=== PATIENT | female | born 1970 | race Caucasian/White ===

== ENCOUNTER 2021-09-16 14:59 | Outpatient (REF) | payer MEDICAID, SELFPAY ==
--- NOTE | ~2021-09-16 | MM_ITS ---
EXAMINATION: MM SCREENING DIGITAL BREAST TOMOSYNTHESIS, BILATERAL CLINICAL INFORMATION: Screening. Asymptomatic. The lifetime risk of breast cancer based on the Tyrer-Cuzick Model is 7%. COMPARISON: Outside mammography: 10/13/2013, 05/27/2012 ([facility]). TECHNIQUE: Digital breast tomosynthesis is performed in both the craniocaudal and mediolateral oblique views along with computer-aided detection (CAD). Synthesized 2D images are generated from the tomosynthesis. FINDINGS: There are scattered areas of fibroglandular density (ACR BI-RADS breast composition Category b). There are no significant masses, abnormal calcifications, or other abnormalities. Parenchymal pattern is similar to prior outside studies. No developing density or architectural abnormality. The axilla and skin contours are unremarkable. MM/MM tomosynthesis screening BI IMPRESSION: No mammographic evidence of malignancy. ASSESSMENT: BI-RADS 1: Negative RECOMMENDATION: Routine annual mammography screening. This patient's information was entered into a reminder system with a target due date for their next mammogram.
== END 2021-09-16 15:00 | disposition home or self-care (01) ==
LOC: HO.MAMMO 14:59
PROVIDERS: Visit Provider Internal Medicine
DX: Z12.31 Encounter for screening mammogram for malignant neoplasm of breast (principal)
CPT/HCPCS: 77063; 77067

== ENCOUNTER 2021-10-29 14:09 | Outpatient (REF) | payer MEDICAID, SELFPAY ==
--- NOTE | ~2021-10-29 | US_ITS ---
EXAMINATION: US SOFT TISSUE OF THE NECK CLINICAL INFORMATION: Lump in neck. COMPARISON: None TECHNIQUE: Linear transducer grayscale and color Doppler examination of the soft tissues of the right supraclavicular area (just right of midline). FINDINGS: No abnormality in the soft tissues is seen bilaterally. No lymph node, mass, cyst or fluid collection is seen. US/US soft tiss head and/or neck IMPRESSION: No soft tissue abnormality seen by ultrasound.
== END 2021-10-29 14:10 | disposition home or self-care (01) ==
LOC: HO.US 14:09
PROVIDERS: Visit Provider Internal Medicine
DX: R22.1 Localized swelling, mass and lump, neck (principal)
CPT/HCPCS: 76536

== ENCOUNTER → 2021-11-19 08:20 | Outpatient (BNVA) | payer MEDICAID, SELFPAY | PROVIDERS: PCP Internal Medicine; Referring Provider Internal Medicine; Visit Provider Nurse Practitioner | DX: Z01.818 Encounter for other preprocedural examination (principal); Z83.71 Family history of colonic polyps | CPT/HCPCS: 99202 ==

== ENCOUNTER 2021-12-10 06:48 | Outpatient (REF) | payer MEDICAID, SELFPAY ==
[2021-12-10 07:07] LABS: MANUAL DIFF FLAG NO
[2021-12-10 07:37] LABS: Basophils Percent Auto 0.3 % (0-2); Eosinophils Absolute Auto 0.1 X10*3/uL (0.0-0.4); Eosinophils Percent Auto 1.8 % (0-4); Hematocrit 45.3 % (37.0-47.0); Hemoglobin 15.4 g/dl (12.0-16.0); Imm Gran Abs Auto 0.01 X10*3/uL (0.00-0.03); Imm Gran Pct Auto 0.1 % (0.0-0.4); Lymphocytes Absolute Auto 1.9 X10*3/uL (1.2-4.9); Lymphocytes Percent Auto 26.2 % (20-40); Mean Corpuscular Hemoglobin 30.6 pg (27.0-33.0); Mean Corpuscular Volume 90.1 fL (80.0-98.0); Mean Platelet Volume 8.7 fL (9.4-12.3); Monocytes Absolute Auto 0.6 X10*3/uL (0.1-1.2); Monocytes Percent Auto 8.6 % (2-11); Neutrophils Absolute Auto 4.5 x10*3/uL (2.0-8.3); Platelet Count 298 X10*3/uL (160-400); Red Blood Count 5.03 X10*6/uL (4.20-5.50); Red Cell Distribution Width 12.8 % (11.0-16.0); White Blood Count 7.1 X10*3/uL (4.8-10.8)
[2021-12-10 08:32] LABS: Alanine Aminotransferase 30 U/L (0-31); Albumin Level 4.5 g/dL (3.5-5.0); Alkaline Phosphatase 80 U/L (39-117); Anion Gap 18 (12-20); Aspartate Amino Transferase 26 U/L (5-31); Bilirubin Total 0.3 mg/dL (0.0-1.0); Blood Urea Nitrogen 14 mg/dL (9-16); Calcium 10.1 mg/dL (8.4-10.2); Carbon Dioxide 27 mmol/L (22-29); Chloride 99 mmol/L (96-108); Estimated Glomerular Filt Rate > 60; Glucose Random 119 mg/dL (60-115); Potassium 4.7 mmol/L (3.3-5.1); Sodium 139 mmol/L (135-145); Total Protein 7.9 g/dL (6.5-8.0)
== END 2021-12-10 06:49 | disposition home or self-care (01) ==
LOC: HO.LAB 06:48
PROVIDERS: Visit Provider Nurse Practitioner
DX: Z01.818 Encounter for other preprocedural examination (principal)
CPT/HCPCS: 36415; 80053; 85025

== ENCOUNTER 2024-07-04 10:09 | Outpatient (REF) | payer MEDICAID, SELFPAY ==
[2024-07-04 11:42] LABS: Alanine Aminotransferase 43 U/L (0-31); Albumin Level 4.6 g/dL (3.5-5.0); Anion Gap 13 (12-20); Aspartate Amino Transferase 33 U/L (5-31); Bilirubin Total 0.3 mg/dL (0.0-1.0); Blood Urea Nitrogen 16 mg/dL (9-16); Calcium 10.1 mg/dL (8.4-10.2); Carbon Dioxide 31 mmol/L (22-29); Chloride 102 mmol/L (96-108); Cholesterol 189 mg/dL (<200); Estimated Glomerular Filt Rate > 60; Glucose Random 95 mg/dL (60-115); HDL Cholesterol 40 mg/dL (>40); LDL Cholesterol Calculated 124 mg/dL (<100); Magnesium 2.2 mg/dL (1.6-2.6); Potassium 3.9 mmol/L (3.3-5.1); Sodium 142 mmol/L (135-145); Total Protein 8.4 g/dL (6.5-8.0); Triglycerides 128 mg/dL (<150)
[2024-07-04 11:43] LABS: HIV AB/AG Nonreactive (Nonreactive); HIV Num 1 0.06 S/CO (0.00-0.99); ~HepC Num1 0.07 S/CO (0.00-0.79); ~Hepatitis C Antibody Nonreactive (Nonreactive)
[2024-07-04 11:46] LABS: Alkaline Phosphatase 79 U/L (39-117); Estimated Average Glucose 137 mg/dL; Hemoglobin A1C 188.0241 umol/L; Hemoglobin A1c % 6.4 % (<6.0); Total Hemoglobin (HGBA1C) 4068.1325 umol/L
--- OUTSIDE RECORDS SUMMARY | 2024-07-04 11:47 | XMS_ITS | Encounter Summary ---
Author Organization [facility] [employer] [facility] Address [address] [place] [address] 7 [place] [address] Care Team Providers Care Credit Risk Analytics Manager Name Role Phone Mari Cobos NP Primary Care Provider [phone] Reason for Visit * Reason Comments Med Refill Encounter Details Date Type Department Care Team (Late Contact Info) Description 01/04/2024 Refill [facility] [address] [place] [address] Mari Cobos NP [address] [place] [address] Primary hypertension Social History Tobacco Use Types Packs/Day Years Used Date Smoking Tobacco: Never Assessed Comments Unknown Sex and Gender Information Value Date Recorded Sex Assigned at Female 01/06/2022 10:29 AM EDT Legal Sex Female 10:29 AM EDT Gender Identity Female 01/06/2022 10:29 AM EDT Sexual Orientation Straight 01/06/2022 10 :29 AM EDT documented as of this encounter Plan of Treatment Upcoming Encounters Date Type Department Care Team (Late Contact Info) Description 08/16/2024 1:00 PM EDT Procedure Visit [facility] [address] [place] [address] Mari Cobos NP [address] [place] [address] documented as of this encounter Visit Diagnoses Diagnosis Primary hypertension Unspecified essential hypertension documented in this encounter Care Teams Credit Risk Analytics Manager Relationship Specialty Start Date End Date Mari Cobos NP [address] [place] [address] PCP - General Family Medicine 04/13/23 documented as of this encounter
--- OUTSIDE RECORDS SUMMARY | 2024-07-04 11:47 | XMS_ITS | Clinical Summary ---
Author Organization [employer] Address [address] [place] [address] 7t [place] [address] Care Team Providers Care Form Press Operator Name Role Phone AugustoMari soto KEVIN Primary Care Provider [phone] Allergies Active Allergy Reactions Criticality Noted Date Comments Cephalexin Rash High 04/20/2015 Not sure Penicillins Rash High 04/20/2015 Medications Aspirin Low Dose 81 MG EC tabletIndications :Primary hypertension CHEW 1 TABLET IN THE MORNING. 90 tablet 1 3 Active lisinopril-hydroC HLOROthiazide 20-25 MG tabletIndications :Primary hypertension Take 2 tablets by mouth in the morning. 180 tablet 5 07/22/19 25 Active amLODIPine (Norvasc) 10 MG tablet Take 1 tablet (10 mg) by mouth Once per day. 90 tablet 3 5 07/05/19 26 Active Active Problems Problem Noted Date Diagnosed Date Dietary counseling 07/04/2024 Exercise counseling 07/04/2024 Assessment & Plan (07/04/2024 9:26 AM EDT): Dietary Recommendations: Fruits, vegetables, whole grains, protein foods, and fat-free or low-fat dairy products are healthy choices. Eat different types of protein foods in your diet. This can include seafood, lean meats, poultry, beans, peas, lentils, nuts, seeds, soy products, and eggs. Limit foods and beverages higher in added sugars, saturated fat, and sodium. Exercise Recommendations: At least 150 minutes of moderate-intensity physical activity per week, or an equivalent combination of moderate- and vigorous-intensity activity Morbid obesity 07/04/2024 Assessment & Plan (07/04/2024 9:53 AM EDT): Engaged in healthy habits Breast screening 07/04/2024 Encounter for screening for malignant neoplasm o f colon 07/04/2024 Muscle pain 07/04/2024 Assessment & Plan (07/04/2024 9:53 AM EDT): Lower extremity aching despite exercise, denies sleep apnea symptoms Possible electrolyte symptoms due to hydrochlorothiazide dose Labs as ordered below Chronic right shoulder pain 01/27/2020 Encounter for routine adult health examination with abnormal findings 11/12/2018 Assessment & Plan (07/04/2024 9:54 AM EDT): Cologuard ordered Referral to dental Pt due for pap to schedule today Mammogram ordered CAD labs as ordered below Anticipatory guidance reviewed including encouraging sun protection Essential hypertension 11/12/2018 Assessment & Plan (07/04/2024 9:51 AM EDT): Slightly above goal today in office however at home reading are 130s<80s Pt is engaged in healthy lifestyle habits Of notes msk aches and pains, this may be related to hydrochlorothiazide, labs as ordered below, If electrolytes are abnormal, pt will discontinue lisinopril/hydrochlorothiazide and start amlodipine 10 mg with close monitoring of bp at home Encounters Date Type Department Care Team Description 07/04/2024 9:00 AM EDT Office Visit [facility] [address] [place] [address] Mari Cobos NP Encounter for routine adult health examination with abnormal findings (Primary Dx); Essential hypertension; Dietary counseling; Exercise counseling; Morbid obesity (CMS/HCC); Breast screening; Encounter for screening for malignant neoplasm of colon; Muscle pain; Encounter for immunization 07/04/2024 Travel 07/01/2024 Telephone [facility] [address] [place] [address] Aura Kay [place] Chart Prep 07/01/2024 Travel 06/22/2024 Patient Outreach [facility] [address] [place] [address] Mari Cobos NP Pre-visit Planning (SDOH unable to reach, no voicemail.) 04/21/2024 Refill [facility] [address] [place] [address] Mari Cobos NP Primary hypertension 04/21/2024 Refill [facility] [address] [place] [address] Mari Cobos NP Primary hypertension from Last 3 Months Immunizations Name Administration Dates Next Due INFLUENZA VACCINE QUADRIVALE NT RECOMBINANT PRESERVATIVE FREE RIV4 01/26/2019 Influenza injectable quadrivalent preservative f ree 01/20/2020 [place] SARS-CoV-2 Vaccination 08/22/2020 PPD Test 04/20/2024 Tdap 07/04/2024 Family History Medical History Relation Name Comments Heart attack Brother Relation Name Status Comments Brother Social History Tobacco Use Types Packs/Day Years Used Date Smoking Tobacco: Never Smokeless Tobacco: Never Tobacco Cessation:Counseling Given: Not Answered Depression Answer Date Recorded Patient Health Questionnaire-9 Score 5 07/04/2024 Patient Health Questionnaire-9 Score 5 07/04/2024 Last PHQ-9: Questionnaire Data Not on file 0 07/04/2024 Housing Stability Answer Date Recorded What is your housing situation today? I have maribel jose 07/04/[address] you li ve. Do you have problems with any of the following? None of the above 07/04/2024 Food Insecurity Answer Date Recorded Within the past 12 months, y ou worried that your food would run out before you got money to buy more: Never True 07/04/2024 Within the past 12 months,th e food you bought just didn't last and you didn't have enough money to get more: Never True Transportation Answer Date Recorded In the past 12 months, has l ack of transportation kept you from medical appts, meetings, work or from getting things needed for daily living? No 07/04/2024 Utilities Answer Date Recorded In the past 12 months, has t he electric, gas, oil or water company threatened to shut off services in your home? No 07/04/2024 Depression Answer Date Recorded Patient Health Questionnaire-2 Score 0 07/04/2024 Internet Access Answer Date Recorded Internet Access Q1 Yes 07/04/2024 Internet Access Q2 Not on file 07/04/2024 Comments No Sex and Gender Information Value Date Recorded Sex Assigned at Female 01/06/2022 10:29 AM EDT Legal Sex Female 10:29 AM EDT Gender Identity Female 01/06/2022 10:29 AM EDT Sexual Orientation Straight 01/06/2022 10 :29 AM EDT Last Filed Vital Signs Vital Sign Reading Time Taken Comments Blood Pressure 145/95 07/04/2024 9:06 AM EDT Pulse 86 07/04/2024 9:06 AM EDT Temperature 33.3 ??C (92 ??F) 07/04/2024 9:06 AM EDT Respiratory Rate 20 07/04/2024 9:06 AM EDT Oxygen Saturation 98% 07/04/2024 9:06 AM EDT Inhaled Oxygen Concentration - - Weight 103 kg (227 lb 3.2 oz) 07/04/2024 9:06 AM EDT Height 160 cm (5' 3 ) 07/04/2024 9:06 AM EDT Body Mass Index 40.25 07/04/2024 9:06 AM EDT Plan of Treatment Upcoming Encounters Date Type Department Care Team (Late st Contact Info) Description 08/16/2024 1:00 PM EDT Procedure Visit [facility] [address] [place] [address] Mari Cobos NP [address] [place] [address] Health Maintenance Due Date Last Done Comments CT Colonography 1969 Colonoscopy 1969 Colorectal Cancer Screening 1969 FIT DNA/Cologuard 1969 FIT 1969 FOBT 1969 HIV Screening 1969 Lipid Panel 1969 07/04/2024 Sigmoidoscopy 1969 Hepatitis C Screening 1987 Hepatitis B Vaccines (1 of 3 - 19+ 3-dose series) 01/25/1988 Pap Smear 1990 Cervical Cancer Screening 1999 HPV/Cotest 1999 Pneumococcal Vaccine: 50+ Years (1 of 1 - PCV) 2019 Zoster Vaccines (1 of 2) 2019 Mammogram 09/17/2023 09/16/2021 COVID-19 Vaccine (2 - 2023-2 5 season) 2023 08/22/2020 Alcohol/Substance Use Screening 07/04/2025 07/04/2024 Depression Screening 07/04/2025 07/04/2024, 07/04/2024 SDOH Screening 07/04/2025 07/04/2024 Tobacco Screening 07/04/2025 07/04/2024 DTaP/Tdap/Td Vaccines (2 - T d or Tdap) 07/04/2034 07/04/2024 RSV Patients and Patients Aged 60 years or older (1 - 1-dose 75+ series) 01/25/2044 Influenza Vaccine Completed 01/04/2024, 01/20/2020, 01/26/2019 HIB Vaccines Aged Out No longer eligi ble based on patient's age to complete this topic HPV Vaccines Aged Out No longer eligi ble based on patient's age to complete this topic Hepatitis A Vaccines Aged Out No long er eligible based on patient's age to complete this topic IPV Vaccines Aged Out No longer eligi ble based on patient's age to complete this topic Meningococcal Vaccine Aged Out No kody edison eligible based on patient's age to complete this topic RSV under 20 months Aged Out No longe r eligible based on patient's age to complete this topic Rotavirus Vaccines Aged Out No longer eligible based on patient's age to complete this topic Procedures Procedure Name Priority Date/Time Associated Diagnosis Comments CREATINE KINASE, TOTAL Routine 10:11 AM EDT Muscle pain MAGNESIUM Routine 07/04/2024 10:11 AM EDT Muscle pain COMPREHENSIVE METABOLIC PANEL Routine 07/04/2024 10:11 AM EDT Essential hypertension Morbid obesity (CMS/HCC) LIPID PANEL, STANDARD Routine 07/04/2024 10:11 AM EDT Essential hypertension Morbid obesity (CMS/HCC) MAMMOGRAM GENERIC Routine 09/16/2021 3:2 0 PM EDT from Last 3 Months or Most Recently Relevant to Health Maintenance Results * Mammography Report 1 (09/16/2021 3:20 PM EDT) Anatomical Region Laterality Modality Breast Bilateral Mammography 09/16/2021 3:20 PM EDT Narrative 09/20/2021 5:18 PM EDT Refer to the Notes tab for result details [facility] Procedure: Mammography Report 1 Procedure Note Provider, MD Filipe - 06/01/2022 Refer to the Notes tab for result details [facility] Procedure: Mammography Report 1 Isai Whalen MD IMG BI PROCEDURES Final Resu lt from Last 3 Months or Most Recently Relevant to Health Maintenance Insurance [employer]BS PPO Care Teams Form Press Operator Relationship Specialty Start Date End Date Mari Cobos NP [address] [place] [id number] PCP - General Family Medicine 04/13/23
--- OUTSIDE RECORDS SUMMARY | 2024-07-04 11:47 | XMS_ITS | Encounter Summary ---
Author Organization [employer] [facility] Address [address] [place] [address] 7 [place] [address] Care Team Providers Care Farmworker Animal Name Role Phone Mari Cobos NP Primary Care Provider Reason for Visit * Reason Onset Date Comments Med Refill 04/21/2024 Encounter Details Date Type Department Care Team (Late st Contact Info) Description 04/21/2024 Refill [facility] [address] [place] [id number] Mari Cobos NP [address] [place] [address] Primary hypertension Social History Tobacco Use Types [...] Description 08/16/2024 1:00 PM EDT Procedure Visit [facility] [address] [place] [id number] Mari Cobos NP [address] [place] [address] documented as of this encounter Visit Diagnoses Diagnosis Primary hypertension Unspecified essential hypertension documented in this encounter Care Teams Farmworker Animal Relationship Specialty Start Date End Date Mari Cobos NP [address] [place] [address] PCP - General Family Medicine 04/13/23 documented as of this encounter
--- OUTSIDE RECORDS SUMMARY | 2024-07-04 11:47 | XMS_ITS | Encounter Summary ---
Author Organization [facility] [employer] Address [address] [place] [address] 7t [place] [address] Care Team Providers Care Cotton Tier Name Role Phone Mari Cobos NP Primary Care Provider [phone] Reason for Referral * Consultation (Routine) - Authorized Specialty Diagnoses / Procedures Referred By Nikko huang Referred To Contact Dental Missile Inspector Preflight / Dentistry Diagnoses Encounter for routine adult health examination with abnormal findings Mari Cobos NP [address] [place] [address] Phone: tel: fax: Referral ID Status Reason Start Date Expiration Date Visits Requested Visits Authorized [id number] Authorized Consult and Treat 07/04/2024 07/04/2025 1 1 * Imaging (Routine) - Authorized Specialty Diagnoses / Procedures Referred By Nikko huang Referred To Contact Radiology Diagnoses Breast screening Procedures BI Mammogram Screening Tomosynthesis Bilateral Mari Cobos NP [address] [place] [address] Phone: tel: fax: [facility] [address] [place] [address] Phone: tel: fax: Referral ID Status Reason Start Date Expiration Date V isits Requested Visits Authorized [id number] Authorized 07/04/2024 07/04/2025 1 1 Encounter Details Date Type Department Care Team (Late st Contact Info) Description 07/04/2024 9:00 AM EDT Office Visit [facility] [address] [place] [address] Mari Cobos NP [address] [place] [address] Encounter for routine adult health examination with abnormal findings (Primary Dx); Essential hypertension; Dietary counseling; Exercise counseling; Morbid obesity (CMS/HCC); Breast screening; Encounter for screening for malignant neoplasm of colon; Muscle pain; Encounter for immunization Social History Tobacco Use Types Packs/Day Years Used Date Smoking Tobacco: Never Smokeless Tobacco: Never Tobacco Cessation:Counseling Given: Not Answered Depression Answer Date Recorded Patient Health Questionnaire-9 Score 5 07/04/2024 Patient Health Questionnaire-9 Score 5 07/04/2024 Last PHQ-9: Questionnaire Data Not on file 0 07/04/2024 Housing Stability Answer Date Recorded What is your housing situation today? I have maribel garcia 07/04/[address] you li [...] AM EDT documented as of this encounter Last Filed Vital Signs Vital Sign Reading [...] Mass Index 40.25 07/04/2024 9:06 AM EDT documented in this encounter Miscellaneous Notes * Assessment & Plan Note - Mari Cobos NP - 07/04/2024 9:54 AM EDTAssociated Problem(s): Encounter for routine adult health examination with abnormal findings Cologuard ordered Referral to dental Pt due for pap to schedule today Mammogram ordered CAD labs as ordered below Anticipatory guidance reviewed including encouraging sun protection * Assessment & Plan Note - Mari Cobos NP - 07/04/2024 9:53 AM EDTAssociated Problem(s): Morbid obesity (CMS/HCC) Engaged in healthy habits * Assessment & Plan Note - Mari Cobos NP - 07/04/2024 9:53 AM EDTAssociated Problem(s): Muscle pain Lower extremity aching despite exercise, denies sleep apnea symptoms Possible electrolyte symptoms due to hydrochlorothiazide dose Labs as ordered below * Assessment & Plan Note - Mari Cobos NP - 07/04/2024 9:51 AM EDTAssociated Problem(s): Essential hypertension Slightly above goal today in office however at home reading are 130s<80s Pt is engaged in healthy lifestyle habits Of notes msk aches and pains, this may be related to hydrochlorothiazide, labs as ordered below, If electrolytes are abnormal, pt will discontinue lisinopril/hydrochlorothiazide and start amlodipine 10 mg with close monitoring of bp at home * Assessment & Plan Note - Mari Cobos NP - 07/04/2024 9:26 AM EDTAssociated Problem(s): Exercise counseling Dietary Recommendations: Fruits, vegetables, whole grains, protein foods, and fat-free or low-fat dairy products are healthychoices. Eat different types of protein foods in your diet. This can include seafood, lean meats, poultry, beans, peas, lentils, nuts, seeds, soy products, and eggs. Limit foods and beverages higher in added sugars, saturated fat, and sodium. Exercise Recommendations: At least 150 minutes of moderate-intensity physical activity per week, or an equivalent combinationof moderate- and vigorous-intensity activity documented in this encounter Plan of Treatment Upcoming Encounters Date Type Department Care Team (Late st Contact Info) Description 08/16/2024 1:00 PM EDT Procedure Visit [facility] [address] [place] [address] Mari Cobos NP [address] [place] [address] Pending Results Name Type Priority Associated Diagnoses Date /Time Lipid Panel, Standard Lab Routine Essential hypertension Morbid obesity (CMS/HCC) 07/04/2024 10:11 AM EDT Comprehensive Metabolic Panel Lab Routine Essential hypertension Morbid obesity (CMS/HCC) 07/04/2024 10:11 AM EDT Magnesium Lab Routine Muscle pain 07/04/2024 10:11 AM EDT Creatine Kinase, Total Lab Routine Muscle pain 07/04/2024 10:11 AM EDT Scheduled Orders Name Type Priority Associated Diagnoses Orde r Schedule Hemoglobin A1c Lab Routine Essential hypertension Morbid obesity (CMS/HCC) Expected: 07/04/2024 (Approximate), Expires: 07/04/2025 BI Mammogram Screening Tomosynthesis Bilateral Imaging Routine Breast screening Expected: 07/04/2024, Expires: 09/03/2025 Cologuard?? colon cancer screening Lab Routine Encounter for screening for malignant neoplasm of colon Ordered: 07/04/2024 TSH W/Reflex to FT4 Lab Routine Muscle pain Expected: 07/04/2024 (Approximate), Expires: 07/04/2025 HIV-1/2 Antigen and Antibodies, Fourth Generation, with Reflexes Lab Routine Encounter for routine adult health examination with abnormal findings Expected: 07/04/2024 (Approximate), Expires: 07/04/2025 Hepatitis C Antibody with Reflex to HCV, RNA, Quantitative, Real-Time PCR Lab Routine Encounter for routine adult health examination with abnormal findings Expected: 07/04/2024, Expires: 07/04/2025 Scheduled Referrals Name Type Priority Associated Diagnoses Orde r Schedule Referral to [facility] Dental Adult Outpatient Referral Routine Encounter for routine adult health examination with abnormal findings Expected: 07/04/2024 (Approximate), Expires: 07/04/2025 documented as of this encounter Procedures Procedure Name Priority Date/Time Associated Diagnosis Comments MAGNESIUM Routine 07/04/2024 10:11 AM EDT Muscle pain CREATINE KINASE, TOTAL Routine 10:11 AM EDT Muscle pain LIPID PANEL, STANDARD Routine 07/04/2024 10:11 AM EDT Essential hypertension Morbid obesity (CMS/HCC) COMPREHENSIVE METABOLIC PANEL Routine 07/04/2024 10:11 AM EDT Essential hypertension Morbid obesity (CMS/HCC) documented in this encounter Visit Diagnoses Diagnosis Encounter for routine adult health examination with abnormal findings- Primary Essential hypertension Unspecified essential hypertension Dietary counseling Dietary surveillance and counseling Exercise counseling Morbid obesity (CMS/HCC) Morbid obesity Breast screening Breast screening, unspecified Encounter for screening for malignant neoplasm of colon Muscle pain Unspecified myalgia and myositis Encounter for immunization documented in this encounter Additional Health Concerns Assessment Noted Time PHQ-9 Depression Total Score: 5 07/05/19 25 10:02 AM EDT documented as of this encounter Care Teams Cotton Tier Relationship Specialty Start Date End Date Mari Cobos NP [address] [place] [id number] PCP - General Family Medicine 04/13/23 documented as of this encounter
--- OUTSIDE RECORDS SUMMARY | 2024-07-04 11:47 | XMS_ITS | Encounter Summary ---
Author Organization [employer] Address [address] [facility] [address] [place] [address] Care Team Providers Care Extension Forester Name Role Phone Mari Cobos KEVIN Primary Care Provider [phone] Encounter Details Date Type Department Care Team (Latest Contact Info) Description 07/04/2024 Travel Social History Tobacco Use Types Packs/Day Years Used Date Smoking Tobacco: Never Smokeless Tobacco: Never Depression Answer Date Recorded Patient Health Questionnaire-9 [...] Description 08/16/2024 1:00 PM EDT Procedure Visit [facility] [address] [place] [address] Mari Cobos NP [address] [place] [address] documented as of this encounter Visit Diagnoses Not on filedocumented in this encounter Additional Health Concerns Assessment Noted Time PHQ-9 Depression Total Score: 5 07/05/19 25 10:02 AM EDT documented as of this encounter Care Teams Extension Forester Relationship Specialty Start Date End Date Mari Cobos NP [address] [place] [address] PCP - General Family Medicine 04/13/23 documented as of this encounter
--- OUTSIDE RECORDS SUMMARY | 2024-07-04 11:47 | XMS_ITS | Encounter Summary ---
Author Organization [employer] Address [address] [place] [address] [address] [place] [address] Care Team Providers Care Acid Maker Name Role Phone Mari Cobos NP Primary Care Provider [phone] Encounter Details Date Type Department Care Team (Latest Contact Info) Description 07/01/2024 Travel Social History Tobacco Use Types Packs/Day [...] Description 08/16/2024 1:00 PM EDT Procedure Visit [facility] [address] [place] [address] Mari Cobos NP [address] [place] [address] documented as of this encounter Visit Diagnoses Not on filedocumented in this encounter Care Teams Acid Maker Relationship Specialty Start Date End Date Mari Cobos NP [address] [place] [address] PCP - General Family Medicine 04/13/23 documented as of this encounter
--- OUTSIDE RECORDS SUMMARY | 2024-07-04 11:47 | XMS_ITS | Encounter Summary ---
Author Organization [employer] Address [address] [place] [address] 7t [place] [address] Care Team Providers Care Ribbing Machine Operator Name Role Phone Mari Cobos KEVIN Primary Care Provider [phone] Reason for Visit * Reason Onset Date Comments Chart Prep 07/01/2024 Encounter Details Date Type Department Care Team ([facility] Contact Info) Description 07/01/2024 Telephone [facility] [address] [place], [place] [phone] Aura Kay MA Chart Prep Social History Tobacco Use Types Packs/Day Years Used Date Smoking Tobacco: Never Assessed Comments Unknown Sex and Gender Information Value Date Recorded Sex Assigned at Female 01/06/2022 10:29 AM EDT Legal Sex Female 10:29 AM EDT Gender Identity Female 01/06/2022 10:29 AM EDT Sexual Orientation Straight 01/06/2022 10 :29 AM EDT documented as of this encounter Miscellaneous Notes * Telephone Encounter - Aura Kay MA - 07/01/2024 1:11 PM EDT Chart Prep Labs: not applicable Images: not applicable Referrals: not applicable Vaccines due: Covid, Tdap, Hep B, PCV20, Flu, Shingles Screenings: colonoscopy, mammogram, and Lipid panel, HIV, Hep C, Cervical cancer Overdue care gaps: SBIRT, SDOH, PHQ-9, ADELSO-7, Disability screen, and Tobacco documented in this encounter Plan of Treatment Upcoming Encounters Date Type Department Care Team ([facility] Contact Info) Description 08/16/2024 1:00 PM EDT Procedure Visit [facility] [address] [place] [address] Mari Cobos NP [address] [place] [address] documented as of this encounter Visit Diagnoses Not on filedocumented in this encounter Care Teams Ribbing Machine Operator Relationship Specialty Start Date End Date Mari Cobos NP [address] [place] [address] PCP - General Family Medicine 04/13/23 documented as of this encounter
--- OUTSIDE RECORDS SUMMARY | 2024-07-04 11:47 | XMS_ITS | Encounter Summary ---
Author Organization [facility] Address [address] [place] [address] 7 [place] [address] Care Team Providers Care Rough Patcher Name Role Phone Mari Cobos NP Primary Care Provider Reason for Visit * Reason Comments Med Refill Encounter Details Date Type Department Care Team (Late Contact Info) Description 03/08/[address] [facility] [address] [place] [address] Mari Cobos NP [address] [place] [address] Primary hypertension Social History Tobacco Use Types [...] Description 08/16/2024 1:00 PM EDT Procedure Visit [facility] [address] [place] [address] Mari Cobos NP [address] [place] [address] documented as of this encounter Visit Diagnoses Diagnosis Primary hypertension Unspecified essential hypertension documented in this encounter Care Teams Rough Patcher Relationship Specialty Start Date End Date Mari Cobos NP [address] [place] [address] PCP - General Family Medicine 04/13/23 documented as of this encounter
== END 2024-07-04 10:10 | disposition home or self-care (01) ==
LOC: HO.HHCL 10:09
PROVIDERS: Visit Provider Nurse Practitioner Family
DX: Z00.01 Encounter for general adult medical examination with abnormal findings (principal); I10 Essential (primary) hypertension; E66.01 Morbid (severe) obesity due to excess calories; M79.10 Myalgia, unspecified site
CPT/HCPCS: 36415; 80053; 80061; 82550; 83036; 83735; 84443; 86803; 87389

== ENCOUNTER 2024-10-07 15:43 | Outpatient (REF) | payer BC, SELFPAY ==
--- OUTSIDE RECORDS SUMMARY | 2024-10-07 15:45 | XMS_ITS | Encounter Summary ---
Author Organization [employer] Address [address] [place] [address] 7t [place] [address] Care Team Providers Care Industry Operations Investigator Name Role Phone Mari Cobos NP Primary Care Provider [phone] Reason for Visit * Reason Comments Med Refill Encounter Details Date Type Department Care Team (Late st Contact Info) Description 03/08/2024 Refill [facility] [address] [place], [place] [phone] Mari Cobos NP [address] [place] [address] Primary hypertension Social History Tobacco Use Types Packs/Day Years Used Date Smoking Tobacco: Never Assessed Comments Unknown Sex and Gender Information Value Date Recorded Sex Assigned at Female 01/06/2022 10:29 AM EDT Legal Sex Female 10:29 AM EDT Gender Identity Female 01/06/2022 10:29 AM EDT Sexual Orientation Straight 01/06/2022 10 :29 AM EDT documented as of this encounter Plan of Treatment Not on file documented as of this encounter Visit Diagnoses Diagnosis Primary hypertension Unspecified essential hypertension documented in this encounter Care Teams Industry Operations Investigator Relationship Specialty Start Date End Date Mari Cobos NP [address] [place], [place] [phone] PCP - General Family Medicine 04/13/23 documented as of this encounter
--- OUTSIDE RECORDS SUMMARY | 2024-10-07 15:46 | XMS_ITS | Clinical Summary ---
Author Organization [facility] Address [address] [address] Phone Care Team Providers Care Database Administrator Name Role Phone Unavailable Primary Care Provider Unavailabl e Allergies Active Allergy Reactions Criticality Noted Date Comments Cephalexin 11/12/2018 Not sure Penicillins Rash Low 11/12/2018 Sulfa (Sulfonamide Antibiotics) Shortness Of Breath High 11/12/2018 Medications meloxicam (MOBIC) 15 MG tabletIndication s:Chronic right shoulder pain TAKE 1 TABLET BY MOUTH EVERY DAY 30 tablet 1 04/03/2020 Active lisinopril-hydro CHLOROthiazide (PRINZIDE,ZESTOR ETIC) 20-12.5 mg per tablet TAKE 1 TABLET BY MOUTH DAILY 30 tablet 05/15/2021 Active PROAIR HFA 90 mcg/actuation inhaler INHALE 2 PUFFS BY MOUTH EVERY 6 HOURS NEEDED FOR WHEEZE 18 g 06/10/2021 Active Active Problems Problem Noted Date Diagnosed Date Chronic right shoulder pain 01/27/2020 Assessment & Plan (01/27/2020 9:24 AM EST): FROM and 5/5 strength. Likely due to tendonitis of the suprasinpatous. Discussed trying to avoid exacerbating activities, rest, heat. -will do course of meloxicam 15mg daily x2-3 week -discussed starting home exercise program after the first week of rest-exercises sent in portal -plan to follow up in 2-3 weeks if no improvement and may do PT and/or refer to orthopedics and she agrees with this plan Essential hypertension 11/12/2018 Assessment & Plan (01/27/2020 9:25 AM EST): BP uncontrolled today-states she hasn't taken medication in 4 days. -strongly encouraged to resume daily use of lisinopril/hctz which does control her BP when she is taking -reviewed reasons to go to ED including severe SURESH, vision changes, chest pain and she voices understanding -plan for recheck in 3-4 weeks once taking medication regularly Assessment & Plan (11/12/2018 7:34 PM EDT): Elevated today however patient is checking regularly at work. Per patient has been very well controlled with current medication for over a year and a half now. She will continue to monitor this at work. We will refill her medication for the next year. She understands she should call at any time to follow-up of her blood pressures are consistently running over 140/90 she agrees with this plan Encounter for routine adult health examination with abnormal findings 11/12/2018 Assessment & Plan (11/12/2018 7:36 PM EDT): Pap: Patient will be due for repeat Pap smear next year (2019). No history of abnormals. records requested from previous provider. Mammogram: She is up-to-date. She will continue to have these done at [facility] in [place] Labs: Ordered 11/12/2018. Immunizations: Up-to-date per patient. Records have been requested Overall, patient is up-to-date with health maintenance. She will have labs and we will contact her with those results. She will have her mammogram done in the next year and we will follow-up annually for physical and as needed in the interim Immunizations Immunization Administration Dates Next Due Influenza Quadrivalent Prese rvative Free IM 01/20/2020,01/20/2020 Influenza Recombinant Sheldon valent Preservative Free IM 01/26/2019 Influenza, Unspecified Formulation 01/19,01/20/2020,01/20/2020,2019 Family History Medical History Relation Comments Hypertension Brother Hypertension Daughter Heart attack Father Hypertension Father Pancreatitis Father Stroke Maternal Grandmother Heart failure Mother Hypertension Mother Insulin resistance Mother Hypertension Sister 1 Relation Status Comments Brother Alive Daughter Alive Father Alive Maternal Grandfather Maternal Grandmother Mother Alive Sister 1 Alive Sister 2 Alive Social History Tobacco Use Types Packs/Day Years Used Date Smoking Tobacco: Never Smokeless Tobacco: Never Alcohol Use Standard Drinks/Week Comments Not Currently 0 (1 standard drink = 0.6 oz pur e alcohol) Education Answer Date Recorded Are you interested in more education? Not on felicia e 07/04/2022 Are you concerned about learning? Not on file 07/04/2022 No 07/04/2022 No 07/04/2022 Digital Access Answer Date Recorded No 08/02/2022 No 08/02/2022 No 08/02/2022 Reliable internet access at home? Not on file 08/02/2022 Device with a working camera? Not on file Comments Unknown Sex and Gender Information Value Date Recorded Sex Assigned at Female 03/21/2020 7:09 AM EST Legal Sex Female 9:58 AM EST Gender Identity Female 03/21/2020 7:09 AM EST Sexual Orientation Straight 03/21/2020 7: 09 AM EST Last Filed Vital Signs Vital Sign Reading Time Taken Comments Blood Pressure 128/78 04/02/2020 7:55 AM EST pt reported Pulse 97 03/21/2020 11:01 AM EST Temperature 37.1 C (98.8 F) 03/21/2020 11:01 AM EST Respiratory Rate 18 03/21/2020 11:01 AM EST Oxygen Saturation 97% 03/21/2020 11:01 AM EST Inhaled Oxygen Concentration - - Weight 93 kg (205 lb) 04/02/2020 7:55 AM EST pt reported Height 160 cm (5' 3 ) 03/21/2020 11:01 AM EST Body Mass Index 36.31 03/21/2020 11:01 AM EST Plan of Treatment Health Maintenance Due Date Last Done Comments Adult Td,Tdap Booster 1969 BLOOD PRESSURE 1969 CREATININE LEVEL 1969 LIPID PANEL 1969 POTASSIUM LEVEL 1969 HEPATITIS C SCREENING 1987 HIV ONE-TIME SCREENING (18-6 5 YEARS) 1987 PAP SMEAR 1990 COLOGUARD 2014 COLONOSCOPY 2014 COLORECTAL CANCER SCREENING 2014 FIT TEST 2014 FOBT 2014 SIGMOIDOSCOPY 2014 VIRTUAL COLONOSCOPY 2014 MAMMOGRAM 02/24/2017 02/24/2015 PNEUMOCOCCAL VACCINES (50+ y ears) (1 of 1 - PCV) 2019 ZOSTER VACCINES (1 of 2) 2019 DEPRESSION SCREENING 11/13/2019 11/12/2018 COVID-19 VACCINE (2 - 2023-2 5 season) 2023 08/22/2020 SMOKING STATUS SCREENING (On ce After 26 Yrs) Completed 04/02/2020 HEPATITIS A VACCINES Aged Out No long er eligible based on patient's age to complete this topic HIB VACCINES Aged Out No longer eligi ble based on patient's age to complete this topic MENINGOCOCCAL VACCINES (ACWY) Aged Out No longer eligible based on patient's age to complete this topic MENINGOCOCCAL VACCINES (B) Aged Out N o longer eligible based on patient's age to complete this topic Medical Devices Not on file Procedures Procedure Name Priority Date/Time Associated Diagnosis Comments MAMMOGRAPHY Routine 02/24/2015 from Last 3 Months or Most Recently Relevant to Health Maintenance Results * MAMMOGRAPHY FOR RESULT ENTRY ONLY (02/24/2015) Historical Provider HEALTH MAINTENANCE Edited Result - Final from Last 3 Months or Most Recently Relevant to Health Maintenance [place] [address] [address] [place] [address] [place] [address] [employer] [facility] [facility] C3 [facility]CO [facility] C3 ACO Additional Source Comments The information contained in this document represents components of the legal health record. It is not the complete legal health record.[facility]
[2024-10-07 16:50] LABS: Alanine Aminotransferase 35 U/L (0-31); Albumin Level 4.6 g/dL (3.5-5.0); Alkaline Phosphatase 80 U/L (39-117); Aspartate Amino Transferase 27 U/L (5-31); Total Protein 7.9 g/dL (6.5-8.0)
== END 2024-10-07 15:44 | disposition home or self-care (01) ==
LOC: HO.HHCL 15:43
PROVIDERS: PCP Nurse Practitioner Family; Visit Provider Nurse Practitioner Family
DX: M79.10 Myalgia, unspecified site (principal)
CPT/HCPCS: 36415; 80076

== ENCOUNTER 2024-10-28 15:34 | Outpatient (REF) | payer BC, SELFPAY ==
--- OUTSIDE RECORDS SUMMARY | 2024-10-28 15:36 | XMS_ITS | Clinical Summary ---
Author Organization [facility] Address [address] [address] Phone Care Team Providers Care Business Intelligence Analyst Name Role Phone Unavailable Primary Care Provider [...] will continue to have these done at [facility] in [place] Labs: Ordered 11/12/2018. Immunizations: Up-to-date per patient. [...] Most Recently Relevant to Health Maintenance [place] [address] [address] [place] [address] [place] [address] [place] [address] C3 ACO [employer] [facility] [facility] [facility]CO C3 ACO [facility] C3 ACO Additional Source Comments The information contained in this document represents components of the legal health record. It is not the complete legal health record.[facility]
--- OUTSIDE RECORDS SUMMARY | 2024-10-28 15:36 | XMS_ITS | Encounter Summary ---
Author Organization [employer] Address [address] [place] [address] 7t [place] [address] Care Team Providers Care Waistline Joiner Lockstitch Name Role Phone Mari Cobos NP Primary Care Provider [phone] Reason for Visit * Reason Comments Med Refill Encounter Details Date Type Department Care Team (Late st Contact Info) Description 03/08/2024 Refill [facility] [address] [place], [place] [phone] Mari Cobos NP [address] [place] [address] Primary hypertension Social History Tobacco Use Types [...] hypertension documented in this encounter Care Teams Waistline Joiner Lockstitch Relationship Specialty Start Date End Date Mari Cobos NP [address] [place], [place] [phone] PCP - General Family Medicine 04/13/23 documented as of this encounter
[2024-10-28 17:01] LABS: Alanine Aminotransferase 29 U/L (0-31); Albumin Level 4.5 g/dL (3.5-5.0); Alkaline Phosphatase 88 U/L (39-117); Anion Gap 11 (12-20); Aspartate Amino Transferase 27 U/L (5-31); Blood Urea Nitrogen 18 mg/dL (9-16); Calcium 9.6 mg/dL (8.4-10.2); Carbon Dioxide 31 mmol/L (22-29); Chloride 104 mmol/L (96-108); Estimated Glomerular Filt Rate > 60; Potassium 4.4 mmol/L (3.3-5.1); Sodium 142 mmol/L (135-145); Total Protein 7.9 g/dL (6.5-8.0)
[2024-11-01 21:33] LABS: CK-BB None Detected (None Detected); CK-MB 0 % (<5); CK-MM 95 % (95-100); Creatine Kinase,Total,Serum 170 U/L (21-240)
== END 2024-10-28 15:35 | disposition home or self-care (01) ==
LOC: HO.HHCL 15:34
PROVIDERS: PCP Nurse Practitioner Family; Visit Provider Nurse Practitioner Family
DX: M79.10 Myalgia, unspecified site (principal)
CPT/HCPCS: 36415; 80053; 82552

== ENCOUNTER 2025-02-01 14:35 | Outpatient (REF) | payer BC, SELFPAY ==
--- NOTE | ~2025-02-01 | MM_ITS ---
EXAMINATION: MM SCREENING DIGITAL BREAST TOMOSYNTHESIS, BILATERAL CLINICAL INFORMATION: Screening. Asymptomatic. COMPARISON: Comparison made to multiple prior, most recent September 16, 2021, and most remote May 27, 2012. TECHNIQUE: Digital breast tomosynthesis is performed in mediolateral oblique and craniocaudal views along with computer-aided detection (CAD). Synthesized 2D images are generated from the tomosynthesis. FINDINGS: BREAST COMPOSITION: There are scattered areas of fibroglandular density. BILATERAL BREASTS: No significant masses, suspicious calcifications or other abnormalities are seen in either breast. MM/MM tomosynthesis screening BI IMPRESSION: BILATERAL BREASTS: Negative, no mammographic evidence of malignancy. Normal interval follow-up is recommended in 12 months. ASSESSMENT: BI-RADS: Category 1: Negative RECOMMENDATION: Routine annual mammography screening. FOLLOW-UP: 1 year F/U This examination should not preclude the clinical evaluation of a suspicious palpable abnormality. This patient's information was entered into a reminder system with a target due date for their next mammogram. Electronically signed by: Darryl Marinelli MD 02/03/2025 05:28 PM AILEEN
--- OUTSIDE RECORDS SUMMARY | 2025-02-01 17:23 | XMS_ITS | Encounter Summary ---
Author Organization [employer] Address [address] [place] [address] 7 [place] [address] Care Team Providers Care Bologna Maker Name Role Phone Mari Cobos NP Primary Care Provider [phone] Reason for Visit * Reason Onset Date Comments Med Refill 10/13/2024 Encounter Details Date Type Department Care Team ([facility] st Contact Info) Description 10/13/2024 Refill [facility] [address] [place], [place] [phone] Mari Cobos NP [address] [place] [address] Social History Tobacco Use Types Packs/Day Years [...] documented as of this encounter Care Teams Bologna Maker Relationship Specialty Start Date End Date Mari Cobos NP [address] [place] [address] PCP - General Family Medicine 04/13/23 documented as of this encounter
--- OUTSIDE RECORDS SUMMARY | 2025-02-01 17:23 | XMS_ITS | Encounter Summary ---
Author Organization [employer] Address [address] [place] [address] 7 [place] [address] Care Team Providers Care General Labor Name Role Phone Mari Cobos NP Primary Care Provider [phone] Reason for Visit * Reason Comments Med Refill Encounter Details Date Type Department Care Team ([facility] st Contact Info) Description 01/04/2024 Refill [facility] [address] [place], [place] [phone] Mari Cobos NP [address] [place] [address] Primary hypertension Social History Tobacco Use Types [...] hypertension documented in this encounter Care Teams General Labor Relationship Specialty Start Date End Date Mari Cobos NP [address] [place], [place] [phone] PCP - General Family Medicine 04/13/23 documented as of this encounter
--- OUTSIDE RECORDS SUMMARY | 2025-02-01 17:23 | XMS_ITS | Encounter Summary ---
Author Organization [employer] Address [address] [place] [address] 7 [place] [address] Care Team Providers Care Energy Efficiency Engineer Name Role Phone Mari Cobos KEVIN Primary Care Provider [phone] Reason for Visit * Reason Onset Date Comments Chart Prep 01/30/2025 Encounter Details Date Type Department Care Team ([facility] st Contact Info) Description 01/30/2025 Telephone [facility] MEDIC[facility] [address] [place], [place] [phone] Alison Piña FNP [address] [place] [address] Chart Prep Social History Tobacco Use Types [...] encounter Miscellaneous Notes * Telephone Encounter - Ava [place] MA - 01/30/2025 10:57 AM EST Chart Prep Labs: done from 10/28/24 Images: not applicable Referrals: not applicable Vaccines due: Covid, Flu, PCV20, Hep B, RSV, and Zoster Screenings: mammogram and Cervical cancer. Overdue care gaps: Tobacco documented in this encounter Plan of Treatment Not on file documented as of this encounter Visit Diagnoses Not on filedocumented in this encounter Additional Health Concerns Assessment Noted Time PHQ-9 Depression Total Score: 5 07/05/19 10:02 AM EDT documented as of this encounter Care Teams Energy Efficiency Engineer Relationship Specialty Start Date End Date Mari Cobos NP [address] [place] [id number] PCP - General Family Medicine 04/13/23 documented as of this encounter
--- OUTSIDE RECORDS SUMMARY | 2025-02-01 17:23 | XMS_ITS | Clinical Summary ---
Author Organization [email or web address] Address [address] [place] [address] [address] [place] [address] Care Team Providers Care Cement Conveyor Operator Name Role Phone Mari Cobos KEVIN Primary Care Provider Allergies Active Allergy Reactions Criticality Noted Date Comments Cephalexin Rash High 04/20/2015 Not sure Penicillins Rash High 04/20/2015 Medications Aspirin Low Dose 81 MG EC tabletIndications :Primary hypertension CHEW 1 TABLET IN THE MORNING. 90 tablet 1 05/12/2022 Active olmesartan-hydroC HLOROthiazide (Benicar HCT) 20-12.5 MG tablet Take 1 tablet by mouth Once per day. 30 tablet 11 07/11/2024 07/12/19 26 Active Active Problems Problem Noted Date Diagnosed Date Hypertension 07/11/2024 Dietary counseling 07/04/2024 Exercise counseling 07/04/2024 Assessment [...] of moderate- and vigorous-intensity activity Morbid obesity (CMS/HCC) 07/04/2024 Assessment & Plan (07/04/2024 9:53 AM [...] Encounters Date Type Department Care Team Description 01/30/[address] [address] Alison Piña FNP Chart Prep 2025 Travel 2025 Telephone [facility] [address] [place] [address] Mari Cobos NP Nurse Triage 11/14/[address] [address] Aye Santana RN from Last 3 Months Immunizations Immunization Administration Dates Next Due INFLUENZA VACCINE QUADRIVALE [...] 86 07/04/2024 9:06 AM EDT Temperature 33.3 C (92 F) 07/04/2024 9:06 AM EDT Respiratory Rate 20 07/04/2024 9:06 AM EDT Oxygen Saturation 98% 07/04/2024 9:06 AM EDT Inhaled Oxygen Concentration - - Weight 103 kg (227 lb 3.2 oz) 07/04/2024 9:06 AM EDT Height 160 cm (5' 3 ) 07/04/2024 9:06 AM EDT Body Mass Index 40.25 07/04/2024 9:06 AM EDT Plan of Treatment Health Maintenance Due Date Last Done Comments CT Colonography 1969 Colonoscopy 1969 FIT 1969 Sigmoidoscopy 1969 Hepatitis B Vaccines (1 of 3 - 19+ 3-dose series) 01/25/1988 Pap Smear 1990 Cervical Cancer Screening 1999 HPV/Cotest 1999 Pneumococcal Vaccine: 50+ Years (1 of 1 - PCV) 2019 RSV Patients and Patients Aged 60 years or older (1 - Risk 50-74 years 1-dose series) 2019 Zoster Vaccines (1 of 2) 2019 Mammogram 09/17/2023 09/16/2021 COVID-19 Vaccine (2 - 2024-2 6 season) 2024 08/22/2020 Influenza Vaccine (#1) 2024 , 01/20/2020, 01/26/2019 Alcohol/Substance Use Screening 07/04/2025 07/04/2024 Depression Screening 07/04/2025 07/04/2024, 07/04/2024 Diabetes: Hemoglobin A1C 07/04/2025 07/04/2024 Disability Screening 07/04/2025 07/04/2024 SDOH Screening 07/04/2025 07/04/2024 Tobacco Screening 07/04/2025 07/04/2024 FOBT 07/08/2025 07/08/2024 Colorectal Cancer Screening 07/09/2027 FIT DNA/Cologuard 07/09/2027 07/08/2024 Lipid Panel 07/04/2029 07/04/2024 DTaP/Tdap/Td Vaccines (2 - T d or Tdap) 07/04/2034 07/04/2024 HIV Screening Completed 07/04/2024 Hepatitis C Screening Completed 07/04/2024 HIB Vaccines Aged Out No longer eligi [...] patient's age to complete this topic Meningococcal B Vaccine Aged Out No l onger eligible based on patient's age to complete [...] Procedure Name Priority Date/Time Associated Diagnosis Comments LAB COLOGUARD COLON CANCER SCREEN Routine 07/08/2024 5:00 AM EDT Encounter for screening for malignant neoplasm of colon HEPATITIS C AB W/REFL TO HCV RNA, QN, PCR Routine 07/04/2024 10:11 AM EDT Encounter for routine adult health examination with abnormal findings HIV 1/2 ANTIGEN/ANTIBODY, FOURTH GENERATION W/RFL Routine 07/04/2024 10:11 AM EDT Encounter for routine adult health examination with abnormal findings HEMOGLOBIN A1C Routine 07/04/2024 10:11 AM EDT Essential hypertension Morbid obesity (CMS/HCC) LIPID PANEL, STANDARD Routine 07/04/2024 10:11 AM EDT Essential hypertension Morbid obesity (CMS/HCC) MAMMOGRAM GENERIC Routine 09/16/2021 3:2 0 PM EDT from Last 3 Months or Most Recently Relevant to Health Maintenance Results * (ABNORMAL) Cologuard?? colon cancer screening (07/08/2024 5:00 AM EDT) Cologuard Result Positive( A) Negative 07/17/2024 5:01 PM EDT [facility] (CLIA #:[id number]) Comment: The Cologuard (TM) test was performed on this specimen. POSITIVE TEST RESULT. A positive Cologuard result should be followed with a colonoscopy or visual examination of the colon. The normal value (reference range) for this assay is negative. TEST DESCRIPTION: Composite algorithmic analysis of stool DNA-biomarkers with hemoglobin immunoassay. Quantitative values of individual biomarkers are not reportable and are not associated with individual biomarker result reference ranges. Cologuard is intended for colorectal cancer screening of adults of either sex, 45 years or older, who are at average-risk for colorectal cancer (CRC). Cologuard has been approved for use by the U.S. FDA. The performance of Cologuard was established in a cross sectional study of average-risk adults aged 50-84. Cologuard performance in patients ages 45 to 49 years was estimated by sub-group analysis of near-age groups. Colonoscopies performed for a positive result may find as the most clinically significant lesion: colorectal cancer [4.0%], advanced adenoma (including sessile serrated polyps greater than or equal to 1cm diameter) [20%] or non- advanced adenoma [31%]; or no colorectal neoplasia [45%]. These estimates are derived from a prospective cross-sectional screening study of 10,000 individuals at average risk for colorectal cancer who were screened with both Cologuard and colonoscopy. (Shari Rodriguez al, N Engl J Med 2014;370(14):4736-2768.) Cologuard may produce a false negative or false positive result (no colorectal cancer or precancerous polyp present at colonoscopy follow up). A negative Cologuard test result does not guarantee the absence of CRC or advanced adenoma (pre-cancer). The current Cologuard screening interval is every 3 years. ([place] [employer] and U.S. Multi-Society Task Force). Cologuard performance data in a 10,000 patient pivotal study using colonoscopy as the reference method can be accessed at the following location: [email or web address]/results. Additional description of the Cologuard test process, warnings and precautions can be found at [email or web address]. Stool specimen (specimen) 07/08/2024 5:00 AM EDT 07/10/2024 11:17 PM EDT Mari Cobos NP LAB MOLECULAR DIAGNOSTICS REBECCAA JA Final Result [facility] (CLIA #:[id number]) [address] [place] [address], * Hepatitis C Antibody with Reflex to HCV, RNA, Quantitative, Real-Time PCR (07/04/2024 10:11 AM EDT) Hepatitis C Antibody Nonreactive Nonreactive [facility] Comment:Antibodies to HCV no t detected; does not exclude early acuteHCV infection. Blood Venous blood specimen / Unknown 07/04/2024 10:11 AM EDT 07/04/2024 10:57 AM EDT Mari Cobos NP LAB BLOOD ORDERABLES Final Resul t Performing Organization Address [facility] Co de Phone Number [facility] [address] [place] [phone] * HIV-1/2 Antigen and Antibodies, Fourth Generation, with Reflexes (07/04/2024 10:11 AM EDT) HIV AB/AG Nonreactive Nonreactive [facility] Comment:HIV-1 p24 Ag and/or HIV-1/HIV-2 Ab not detected.A test result that is nonreactive does not exclude thepossibility of exposure to or infection with HIV-1 and/orHIV-2. Nonreactive results in this assay for individualswith prior exposure to HIV-1 and/or HIV-2 may be due toantigen and antibody levels that are below the limit ofdetection of this assay.The [employer] HIV Ag/Ab Combo assay result andsupplemental assay results should be interpreted inconjunction with the patient's clinical presentation,history and other laboratory results. If the results areinconsistent with clinical evidence, additional testing issuggested to confirm the result. Blood Venous blood specimen / Unknown 07/04/2024 10:11 AM EDT 07/04/2024 10:57 AM EDT Mari Cobos NP LAB BLOOD ORDERABLES Final Resul t Performing Organization Address [facility] Co de Phone Number [facility] [address] [place] [phone] * (ABNORMAL) Hemoglobin A1c (07/04/2024 10:11 AM EDT) Hemoglobin A1c 6.4(H) <6.0 % [facility] Comment:Hemoglobin A1C Refer ence Range Adults: 4.8 - 6.0 % Non diabetic: < 6.0 % Goal: < 7.0 %Additional Action Suggested: > 8.0 %Note: Hemoglobin A1c results are invalid for patients with abnormal amounts of HbF. Blood transfusions may impact the HbA1c concentration in the patient sample. Estimated Average Glucose 137 mg/dL [facility] Comment:eAG = Estimated ave rage glucose which is %A1C expressed asaverage glucose, using the formula of the B9T-WmpzmwdSeyxaft Glucose study (ADAG), Diabetes Care, Vol.31,#8,2007 Blood Venous blood specimen / Unknown 07/04/2024 10:11 AM EDT 07/04/2024 10:57 AM EDT us Mari Cobos NP LAB BLOOD ORDERABLES Final Resul t Performing Organization Address [facility] Co de Phone Number [facility] [address] [place] [phone] * (ABNORMAL) Lipid Panel, Standard (07/04/2024 10:11 AM EDT) Triglycerides 128 <150 mg/dL [facility] Comment:Desirable Triglyceri de: less than 150 mg/dLBorderline High Triglyceride 150-199 mg/dLHigh Triglyceride: 200-499 mg/dLVery High Triglyceride: greater than or equal to 5OO mg/dL Cholesterol 189 <200 mg/dL [facility] Comment:Desirable Cholestero l: less than 200 mg/dLBorderline High Cholesterol: 200-239 mg/dLHigh Cholesterol: greater than 239 mg/dL LDL Cholesterol Calculated 124(H) <100 mg/dL [facility] Comment:Desirable LDL: less than 100 mg/dLNear Optimal/Above Optimal LDL: 110- 129 mg/dLBorderline High LDL: 130-159 mg/dLHigh LDL: 160-189 mg/dLVery High LDL: greater than or equal to 190 mg/dL HDL Cholesterol 40(L) >40 mg/dL [facility] Comment:Desirable HDL: great er than 40 mg/dL Note: This HDL assay may give artificially low results in patients with liver disease. Blood Venous blood specimen / Unknown 07/04/2024 10:11 AM EDT 07/04/2024 10:57 AM EDT us Mari Cobos PRODUCTION METAL SPRAYER LAB BLOOD ORDERABLES Final Resul t [facility] [address] [place] [phone] * Mammography Report 1 (09/16/2021 3:20 PM EDT) Anatomical Region Laterality Modality Breast Bilateral Mammography 09/16/2021 3:20 PM EDT Narrative 09/20/2021 5:18 PM EDT Refer to the Notes tab for result details [facility] Procedure: Mammography Report 1 Procedure Note Provider, MD Filipe - 06/01/2022 Refer to the Notes tab for result details [facility] Procedure: Mammography Report 1 us Isai Whalen MD IMG BI PROCEDURES Final Resu lt from Last 3 Months or Most Recently Relevant to Health Maintenance Insurance BCBS PPO Care Teams Cement Conveyor Operator Relationship Specialty Start Date End Date Mari Cobos NP [address] [place] [phone] PCP - General Family Medicine 04/13/23
--- OUTSIDE RECORDS SUMMARY | 2025-02-01 17:23 | XMS_ITS | Encounter Summary ---
Author Organization [employer] Address [address] [place] [address] [address] [place] [address] Care Team Providers Care Instrumentation And Controls Designer Name Role Phone Mari Cobos NP Primary Care Provider [phone] Reason for Visit * Reason Onset Date Comments Med Refill 04/21/2024 Encounter Details Date Type Department Care Team ([facility] st Contact Info) Description 04/21/2024 Refill [facility] [address] [place] [address] Mari Cobos NP [address] [place] [address] Primary hypertension Social History Tobacco Use Types [...] hypertension documented in this encounter Care Teams Instrumentation And Controls Designer Relationship Specialty Start Date End Date Mari Cobos NP [address] [place] [address] PCP - General Family Medicine 04/13/23 documented as of this encounter
--- OUTSIDE RECORDS SUMMARY | 2025-02-01 17:23 | XMS_ITS | Encounter Summary ---
Author Organization [employer] Address [address] [place] [address] [address] [place] [address] Care Team Providers Care Microelectronics Assembler Name Role Phone Mari Cboos NP Primary Care Provider [phone] Reason for Visit * Reason Comments Med Refill Encounter Details Date Type Department Care Team (Late st Contact Info) Description 03/08/2024 Refill [facility] [address] [place], [place] [phone] Mari Cobos NP [address] [place] [address] Primary hypertension Social History Tobacco Use Types [...] hypertension documented in this encounter Care Teams Microelectronics Assembler Relationship Specialty Start Date End Date Mari Cobos NP [address] [place], [place] [phone] PCP - General Family Medicine 04/13/23 documented as of this encounter
--- OUTSIDE RECORDS SUMMARY | 2025-02-01 17:23 | XMS_ITS | Clinical Summary ---
Author Organization [facility] Address [address] [address] Phone Care Team Providers Care Senior Trial Attorney Name Role Phone Unavailable Primary Care Provider [...] will continue to have these done at [facility] in [place] Labs: Ordered 11/12/2018. Immunizations: Up-to-date per patient. [...] HEPATITIS C SCREENING 1987 HIV ONE-TIME SCREENING (18-65 YEARS) 1987 PAP SMEAR 1990 COLOGUARD 2014 COLONOSCOPY 2014 COLORECTAL CANCER SCREENING 2014 FIT TEST 2014 FOBT 2014 SIGMOIDOSCOPY 2014 VIRTUAL COLONOSCOPY 2014 MAMMOGRAM 02/24/2017 02/24/2015 PNEUMOCOCCAL VACCINES (50+ years) (1 of 1 - PCV) 2019 ZOSTER VACCINES (1 of 2) 2019 DEPRESSION SCREENING 11/13/2019 11/12/2018 INFLUENZA VACCINE (#1) 2024 0, 01/20/2020, 01/20/2020, Additional history exists COVID-19 VACCINE (2 - 2024- season) 2024 08/22/2020 RSV VACCINE (1 - 1-dose 75+ series) 01/25/2044 SMOKING STATUS SCREENING (Once After 26 Yrs) Completed 04/02/2020 HEPATITIS A [...] Procedure Name Priority Date/Time Associated Diagnosis Comments HM MAMMOGRAPHY Routine 02/24/2015 from Last 3 Months or Most Recently Relevant to Health Maintenance Results * MAMMOGRAPHY FOR RESULT ENTRY ONLY (02/24/2015) Historical Provider HEALTH MAINTENANCE Edited Result - Final from Last 3 Months or Most Recently Relevant to Health Maintenance Insurance [facility] C3 ACO C3 ACO C3 ACO C3 ACO C3 ACO C3 ACO C3 ACO C3 ACO [facility] C3 ACO Additional Source Comments The information contained in this document represents components of the legal health record. It is not the complete legal health record.[facility]
== END 2025-02-01 14:36 | disposition home or self-care (01) ==
LOC: HO.MAMMO 14:35
PROVIDERS: Visit Provider Nurse Practitioner Family
DX: Z12.31 Encounter for screening mammogram for malignant neoplasm of breast (principal)
CPT/HCPCS: 77063; 77067

== ENCOUNTER → 2025-02-01 14:45 | Outpatient (BNV) | payer BC, SELFPAY | PROVIDERS: Visit Provider Radiology Body Imaging | DX: Z12.31 Encounter for screening mammogram for malignant neoplasm of breast (principal) | CPT/HCPCS: 77063; 77067 ==